=== PATIENT | male | born 1995 | race Caucasian/White ===

== ENCOUNTER 2023-06-24 11:36 | Emergency (ER) | payer OTHER ==
[~2023-06-24] VITALS: Ht 185.4 cm; Wt 74.5 kg
[2023-06-24 11:41] VITALS: TEMP 98.3
[2023-06-24 14:44] LABS: BASOPHILS % (AUTO) 0.7 % (0.0-2.0); HEMATOCRIT 41.9 % (41-53); HEMOGLOBIN 15.1 g/dL (13.5-17.5); LYMPHOCYTES # (AUTO) 1.8 K/uL (1.0-4.8); LYMPHOCYTES % (AUTO) 22.7 % (22.0-44.0); MEAN CORPUSCULAR HEMOGLOBIN 29.9 pg (26.0-34.0); MEAN CORPUSCULAR HGB CONC 35.9 G/dL (31.0-37.0); MEAN CORPUSCULAR VOLUME 83 fL (80-100); MONOCYTES # (AUTO) 0.4 K/uL (0.1-1.0); MONOCYTES % (AUTO) 5.2 % (2.0-9.0); NEUTROPHILS # (AUTO) 5.6 K/uL (1.8-7.7); NEUTROPHILS % (AUTO) 68.4 % (40.0-70.0); PLATELET COUNT (AUTO) 370 K/uL (150-450); RED BLOOD CELL COUNT(AUTO) 5.04 MIL/uL (4.50-5.90); RED CELL DISTRIBUTION WIDTH 13.1 % (11.5-14.5); WHITE BLOOD COUNT (AUTO) 8.1 K/uL (4.5-11.0)
[2023-06-24 14:54] LABS: ANION GAP 10 mmol/L (8-16); CALCIUM, TOTAL 9.2 mg/dL (8.8-10.5); CARBON DIOXIDE 28 mmol/L (22-29); CHLORIDE 103 mmol/L (98-107); CREATININE 0.75 mg/dL (0.60-1.30); GLOMERULAR FILTR. RATE CALC > 60 mL/min (>60); GLUCOSE,RANDOM 96 mg/dL (70-110); POTASSIUM 3.9 mmol/L (3.5-5.1); SODIUM SERUM 141 mmol/L (136-145); UREA NITROGEN, BLOOD 9 mg/dL (7-18)
[2023-06-24 15:00] LABS: ALANINE AMINOTRANSFERASE 14 U/L (12-78); ALBUMIN 4.4 g/dL (3.4-5.0); ALKALINE PHOSPHATASE 81 U/L (46-116); ASPARTATE AMINOTRANSFERASE 12 U/L (15-37); BILIRUBIN,TOTAL 0.4 mg/dL (0.1-1.0); LIPASE 74 U/L (16-77); TOTAL PROTEIN, SERUM 7.3 g/dL (6.4-8.2)
[2023-06-24] MEDS: SODIUM CHLORIDE 0.9% 1,000 ML IV ONE (15:10)
[2023-06-24] MEDS: ONDANSETRON HCL 4 MG/2 ML VIAL IVP ONE (15:10)
[2023-06-24] MEDS: KETOROLAC TROMETHAMINE 30 MG/ML VIAL IVP ONE (15:11)
[2023-06-24 16:14] VITALS: BP 143/81; PULSE 66; RESP 16
[2023-06-24] MEDS ORDERED: IBUP-1554 PO (17:28)
[2023-06-24] MEDS ORDERED: ACET-66 PO (17:28)
[2023-06-24] MEDS ORDERED: OMEP20 PO (17:28)
[2023-06-24] MEDS ORDERED: ONDA-104 PO (17:28)
[2023-06-24] MEDS ORDERED: BUPR-72 PO (17:28)
[2023-06-24] MEDS ORDERED: LORA-999 PO (17:28)
== END 2023-06-24 18:30 | disposition home or self-care (01) ==
LOC: EMS 11:45
DX: G89.29 Other chronic pain (principal); M25.552 Pain in left hip; R11.2 Nausea with vomiting, unspecified; R53.1 Weakness; F32.A Depression, unspecified; F17.210 Nicotine dependence, cigarettes, uncomplicated; F12.90 Cannabis use, unspecified, uncomplicated; F15.90 Other stimulant use, unspecified, uncomplicated; Z89.029 Acquired absence of unspecified finger(s); Z98.890 Other specified postprocedural states
CPT/HCPCS: 99284; 96374; 96361; 96375; 80053; 83690; 85025; J1885; J2405; J7030; 36415-L1; 36415-TC

== ENCOUNTER 2023-07-08 12:39 | Emergency (ER) | payer OTHER ==
[~2023-07-08] VITALS: Ht 185.4 cm; Wt 72.7 kg
[~2023-07-08 12:39] MED LIST: ACET-66 PO; BUPR-72 PO; IBUP-1554 PO; LORA-999 PO; OMEP20 PO; ONDA-104 PO
[2023-07-08 12:54] VITALS: TEMP 98.4
[2023-07-08] MEDS ORDERED: CELE-146 PO (12:58)
[2023-07-08] MEDS ORDERED: HYDROCODONE/ACETAMINOPHEN 5-325 MG TABLET PO ONE (13:30)
[2023-07-08] MEDS ORDERED: KETOROLAC TROMETHAMINE 60 MG/2 ML VIAL IM ONE (13:30)
[2023-07-08 15:21] VITALS: BP 119/68; PULSE 74; RESP 16
== END 2023-07-08 15:21 | disposition home or self-care (01) ==
LOC: EMS 12:39
DX: S70.02XA Contusion of left hip, initial encounter (principal); F17.210 Nicotine dependence, cigarettes, uncomplicated; F12.90 Cannabis use, unspecified, uncomplicated; F15.90 Other stimulant use, unspecified, uncomplicated; Z96.691 Finger-joint replacement of right hand; Y08.89XA Assault by other specified means, initial encounter; Y93.89 Activity, other specified; Y92.89 Other specified places as the place of occurrence of the external cause; Y99.8 Other external cause status
CPT/HCPCS: 99284; 73090; 73503; 96372; J1885